=== PATIENT | female | born 1985 ===

== ENCOUNTER 2017-08-12 11:44 | Observation (INO) | payer MEDICARE, OTHER ==
[2017-08-12 11:44] VITALS: BMI 19.8
[2017-08-12] MEDS ORDERED: Albuterol-Ipratrop 3 mg / 0.5 (3 ml) UD INH STA ×3 (12:18→12:38)
[2017-08-12] MEDS ORDERED: Albuterol-Ipratrop 3 mg / 0.5 (3 ml) UD ONE (12:36)
[2017-08-12 12:43] LABS: BASO % 0.5 % (0.0-2.0); EOS # 0.2 K/uL (0.0-0.7); EOS % 4.9 % (0.0-4.0); HEMOGLOBIN 12.7 g/dL (12.0-16.0); LYMPH % 21.1 % (20.0-40.0); MEAN CELL VOLUME 84.2 fl (81.0-99.0); MEAN CORPUSCULAR HGB CONC 33.2 g/dL (33.0-37.0); MEAN PLATELET VOLUME 8.5 fl (7.2-11.7); MONO # 0.6 K/uL (0.0-0.8); MONO % 12.1 % (0.0-10.0); NEUT % 61.4 % (50.0-75.0); RBC 4.53 Mil/uL (3.80-5.20); RED CELL DISTRIBUTION WIDTH 13.8 % (11.5-14.5); WHITE BLOOD COUNT 4.9 K/uL (4.8-10.8)
--- NOTE | 2017-08-12 12:58 | ED PDOC ---
HPI: SOB/CHF/COPD Time Seen by Provider: 08/12/17 12:00 Chief Complaint (Nursing): Cough, Cold, Congestion Chief Complaint (Provider): shortness of breath History Per: Patient History/Exam Limitations: no limitations Onset/Duration Of Symptoms: Days (x1 week) Current Symptoms Are (Timing): Still Present Associated Symptoms: Fever, Productive Cough (clear sputum). denies: Chest Pain , Ankle/Leg Swelling Additional Complaint(s): Yoel Prado is a 32 year old female, with a past medical history of asthma as a child, who presents to the emergency department accompanied by spouse complaining of difficulty breathing associated with productive cough onset for x1 week. Patient reports a clear sputum and states she had a fever yesterday. Per spouse, patient had to wake up every 4 hrs to use the nebulizer but without relief. Patient had an appointment with PMD today who said her lungs sound tight and advised her to come to the ED. She denies similar symptoms in the past but reports having asthma as a child. She denies any chest pain, leg swelling or recent travel. No further medical complaints. PMD: Jesus Trejo Past Medical History Reviewed: Historical Data, Nursing Documentation, Vital Signs Vital Signs: Last Vital Signs Temp 98.0 F 08/12/17 11:53 Pulse 89 08/12/17 11:53 Resp 20 08/12/17 11:53 BP 107/67 08/12/17 11:53 Pulse Ox 98 08/12/17 14:30 - Medical History PMH: Anxiety, Asthma (uses inhaler), Depression Denies: Chronic Kidney Disease - Surgical History Surgical History: No Surg Hx - Family History Family History: States: No Known Family Hx - Social History Current smoker - smoking cessation education provided: Yes (light smoker <10 cigarettes daily) Alcohol: None Drugs: Denies - Immunization History Hx Tetanus Toxoid Vaccination: No Hx Influenza Vaccination: No Hx Pneumococcal Vaccination: No - Home Medications Home Medications: Ambulatory Orders Medication Instructions Recorded Albuterol Sulfate [Ventolin Hfa] 2 puff IH Q6 PRN 08/12/17 Buspirone HCl [Buspirone HCl] 15 mg PO Q8 08/12/17 Divalproex [Depakote DR] 500 mg PO HS 08/12/17 Paroxetine HCl [Paxil] 40 mg PO DAILY 08/12/17 QUEtiapine [SEROquel] 50 mg PO HS PRN 08/12/17 clonazePAM [Klonopin] 0.5 mg PO Q8 PRN 08/12/17 - Allergies Allergies/Adverse Reactions: Allergies Allergy/AdvReac Type Severity Reaction Status Date / Time Penicillins AdvReac DIARRHEA Verified 08/12/17 11:59 Wells Criteria for PE - Wells Criteria for Pulmonary Embolism Clinical Signs and Symptoms of DVT: No P.E is #1 Diagnosis, or Equally Likely: No Heart Rate >100: No Immobilization at least 3 days;Surgery previous 4 weeks: No Previous, objectively diagnosed PE or DVT: No Hemoptysis: No Malignancy w/treatment within 6 months, or palliative: No Total Score: 0 Review of Systems ROS Statement: Except As Marked, All Systems Reviewed And Found Negative Constitutional: Positive for: Fever Cardiovascular: Negative for: Chest Pain, Edema Respiratory: Positive for: Cough (productive), Shortness of Breath, Sputum ( clear ) Physical Exam - Reviewed Nursing Documentation Reviewed: Yes Vital Signs Reviewed: Yes - Physical Exam Appears: Positive for: Non-toxic Head Exam: Positive for: ATRAUMATIC, NORMOCEPHALIC Skin: Positive for: Normal Color, Warm, Dry Eye Exam: Positive for: Normal appearance ENT: Positive for: Normal ENT Inspection Neck: Positive for: Painless ROM Cardiovascular/Chest: Positive for: Regular Rate, Rhythm Respiratory: Positive for: Decreased Breath Sounds, Wheezing (b/l). Negative for: Respiratory Distress Gastrointestinal/Abdominal: Positive for: Normal Exam, Soft. Negative for: Tenderness Extremity: Positive for: Normal ROM (upper and lower extremities). Negative for : Deformity, Swelling Neurologic/Psych: Positive for: Alert, Oriented. Negative for: Motor/Sensory Deficits - Laboratory Results Result Diagrams: 08/12/17 12:30 08/12/17 12:30 - ECG O2 Sat by Pulse Oximetry: 98 (RA) Pulse Ox Interpretation: Normal Medical Decision Making Medical Decision Making: Initial Impression: shortness of breath, wheezing. Differential includes: asthma exacerbation due to smoking, acute bronchitis. r/o CHF, less likely ACS Initial Plan: --EKG --B-type natriuretic peptide --BMP --Troponin I --CBC w/ differential --Chest one view [RAD] --Duoneb 3 ml INH --SOLU-medrol 125 mg IVP --Peak flow pre/post Tx --Reevaluation - Wells score is 0. PERC negative 13:20 -On reassessment patient improved but still has symptoms, not completely resolved. Patient refuses xray she reports she had one 2 weeks ago and it was negative. 13:35 -Spoke with Dr. Trejo, discussed case and he will admit the patient for observation under his service for asthma exacerbation. Scribe Attestation: Documented by Dev Allen, acting as a scribe for Orlando Bettencourt MD Provider Scribe Attestation: All medical record entries made by the Scribe were at my direction and personally dictated by me. I have reviewed the chart and agree that the record accurately reflects my personal performance of the history, physical exam, medical decision making, and the department course for this patient. I have also personally directed, reviewed, and agree with the discharge instructions and disposition. Disposition - Clinical Impression Clinical Impression: Asthma exacerbation - Patient ED Disposition Is Patient to be Admitted: No Doctor Will See Patient In The: Office Counseled Patient/Family Regarding: Studies Performed, Diagnosis, Need For Followup - Disposition Disposition Time: 13:30 Condition: FAIR - Pt Status Changed To: Hospital Disposition Of: Observation - POA Present On Arrival: None PAUL Risk Score for UA/NSTEMI - PAUL Risk Score Age > 64: NO 3 or more CAD Risk Factors: NO Known CAD (Stenosis greater than 50%): NO Aspirin use in past 7 days: NO Severe Angina: NO EKG ST changes greater than 0.5mm: NO Positive Cardiac Marker: NO PAUL Score: 0 % risk at 14 days of: all cause mortality, new or recurrent [place], or severe recurrent ischemia requiring urgen revascularization: 5%
[2017-08-12 13:02] LABS: BLOOD UREA NITROGEN 7 mg/dl (7-17); CALCIUM 8.8 mg/dL (8.4-10.2); GFR AFRICAN-AMERICAN > 60; GFR NON-AFRICAN AMERICAN > 60
[2017-08-12 13:03] LABS: B-TYPE NATRIURETIC PEPTIDE 135 pg/ml (0-450)
[2017-08-12] MEDS ORDERED: Potassium Chloride 20 mEq ER Tab PO ONE ×4 (13:35→23:00)
[2017-08-12 14:29] LABS: SQUAMOUS EPITHIAL 1 /hpf (0-5); URINE BACTERIA RARE (<OCC); URINE BILIRUBIN NEGATIVE (NEGATIVE); URINE BLOOD NEGATIVE (NEGATIVE); URINE CLARITY SLIGHTY-CLOUDY (Clear); URINE COLOR YELLOW (YELLOW); URINE GLUCOSE (UA) NEG (Normal); URINE LEUKOCYTE ESTERASE NEG Leu/uL (Negative); URINE PROTEIN NEGATIVE (NEGATIVE); URINE UROBILINOGEN 0.2-1.0 mg/dL (0.2-1.0)
[2017-08-12] MEDS: Azithromycin 500 MG in Sodium Chloride 0.9% 250 ML IVPB SCH (16:45)
[2017-08-12] MEDS: Enoxaparin 40 mg Syringe SC SCH (16:47)
[2017-08-12] MEDS ORDERED: methylPREDNISolone 60 MG in Sodium Chloride 0.9% 50 ML IVPB SCH (17:00)
[2017-08-12] MEDS: Fluticasone-Salmeterol 250-50mcg Diskus IH SCH (21:46)
[2017-08-12] MEDS: Albuterol-Ipratrop 3 mg / 0.5 (3 ml) UD INH PRN (22:11)
[2017-08-13] MEDS: Albuterol-Ipratrop 3 mg / 0.5 (3 ml) UD INH PRN ×2 (05:39→08:57)
[2017-08-13 07:40] VITALS: RESP 18
[2017-08-13 08:00] LABS: BASO % 0.1 % (0.0-2.0); HEMOGLOBIN 12.7 g/dL (12.0-16.0); LYMPH # 0.3 K/uL (1.0-4.3); LYMPH % 5.9 % (20.0-40.0); MEAN CORPUSCULAR HEMOGLOBIN 28.5 pg (27.0-31.0); MEAN CORPUSCULAR HGB CONC 33.9 g/dL (33.0-37.0); MEAN PLATELET VOLUME 8.6 fl (7.2-11.7); MONO # 0.2 K/uL (0.0-0.8); MONO % 4.3 % (0.0-10.0); NEUT # 4.4 K/uL (1.8-7.0); NEUT % 89.7 % (50.0-75.0); PLATELET COUNT 192 K/uL (130-400); RBC 4.47 Mil/uL (3.80-5.20); WHITE BLOOD COUNT 4.9 K/uL (4.8-10.8)
[2017-08-13 08:25] LABS: BLOOD UREA NITROGEN 8 mg/dl (7-17); CALCIUM 8.7 mg/dL (8.4-10.2); GFR AFRICAN-AMERICAN > 60; GFR NON-AFRICAN AMERICAN > 60
[2017-08-13] MEDS: Enoxaparin 40 mg Syringe SC SCH (09:52)
[2017-08-13] MEDS: Fluticasone-Salmeterol 250-50mcg Diskus IH SCH (09:53)
[2017-08-13 10:45] LABS: BANDS 3 % (0-2); LYMPHOCYTE 5 % (20-50); MONOCYTE 3 % (0-10); NEUTROPHIL 89 % (42-75); PLATELET ESTIMATE NORMAL (NORMAL); TOTAL CELLS COUNTED 100
--- NOTE | 2017-08-13 10:48 | CARD ---
APPROVED REPORT EXAM: Two-dimensional and M-mode echocardiogram with Doppler and color Doppler. Other Information Quality : GoodRhythm : NSR INDICATION Dyspnea COPD 2D DIMENSIONS IVSd0.86 (0.7-1.1cm)LVDd4.27 (3.9-5.9cm) LVOT Diameter2.13 (1.8-2.4cm)PWd0.80 (0.7-1.1cm) IVSs1.04 (0.8-1.2cm)LVDs3.06 (2.5-4.0cm) FS (%) 28.4 %PWs0.81 (0.8-1.2cm) M-Mode DIMENSIONS Left Atrium (MM)2.78 (2.5-4.0cm)IVSd0.62 (0.7-1.1cm) Aortic Root2.91 (2.2-3.7cm)LVDd4.63 (4.0-5.6cm) Aortic Cusp Exc.1.85 (1.5-2.0cm)PWd0.88 (0.7-1.1cm) IVSs1.29 cmFS (%) 42 % LVDs2.70 (2.0-3.8cm)PWs1.36 cm Mitral Valve E/A ratio0.0 TDI E/Lateral E'0.0E/Medial E'0.0 Pulmonary Valve PV Peak Geojgexd00.5cm/s LEFT VENTRICLE The left ventricle is normal size. There is normal left ventricular wall thickness. The left ventricular function is normal. The left ventricular ejection fraction is 60% There is normal LV segmental wall motion. The left ventricular diastolic function is normal. No left ventricle thrombus noted on this study. There is no ventricular septal defect visualized. There is no left ventricular aneurysm. There is no mass noted in the left ventricle. RIGHT VENTRICLE The right ventricle is normal size. There is normal right ventricular wall thickness. The right ventricular systolic function is normal. ATRIA The left atrium size is normal. The right atrium size is normal. The interatrial septum is intact with no evidence for an atrial septal defect. AORTIC VALVE The aortic valve is normal in structure. No aortic regurgitation is present. There is no aortic valvular stenosis. There is no aortic valvular vegetation. MITRAL VALVE The mitral valve is normal in structure. There is no evidence of mitral valve prolapse. There is no mitral valve stenosis. There is no mitral valve regurgitation noted. TRICUSPID VALVE The tricuspid valve is normal in structure. There is no tricuspid valve regurgitation noted. There is no tricuspid valve prolapse or vegetation. There is no tricuspid valve stenosis. PULMONIC VALVE The pulmonary valve is normal in structure. There is no pulmonic valvular regurgitation. There is no pulmonic valvular stenosis. GREAT VESSELS The aortic root is normal in size. The ascending aorta is normal in size. The IVC is normal in size and collapses >50% with inspiration. PERICARDIAL EFFUSION The pericardium appears normal. There is no pleural effusion. <Conclusion> Normal Echocardiogram
[2017-08-13] MEDS: Azithromycin 500 MG in Sodium Chloride 0.9% 250 ML IVPB SCH (11:00)
--- NOTE | 2017-08-13 11:15 | RAD ---
HISTORY: Shortness of breath. COMPARISON: 09/02/2013 TECHNIQUE: Chest PA and lateral FINDINGS: LUNGS: No active pulmonary disease. PLEURA: No significant pleural effusion identified. No pneumothorax apparent. CARDIOVASCULAR: Normal. OSSEOUS STRUCTURES: No significant abnormalities. VISUALIZED UPPER ABDOMEN: Normal. OTHER FINDINGS: None. IMPRESSION: No active disease. No significant interval change compared to the prior examination(s).
[2017-08-13] MEDS ORDERED: MethylPREDNISolone 40 mg Vial IVP ONE (12:45)
[2017-08-13 16:00] VITALS: BP 99/59; PULSE 117; TEMP 98.7; O2SAT 95
--- NOTE | 2017-08-13 18:43 | CP.PCM.HP ---
History of Present Illness - History of Present Illness History of Present Illness: Patient presented in ER with SOB. Patient was not responding to medication as OP . She was started on iv steroid and now improved well At present no SOB no wheezing. Present on Admission - Present on Admission Any Indicators Present on Admission: No Review of Systems - Constitutional Constitutional: As Per HPI - EENT Eyes: As Per HPI - Cardiovascular Cardiovascular: As Per HPI - Respiratory Respiratory: Dyspnea, Wheezing - Gastrointestinal Gastrointestinal: As Per HPI - Genitourinary Genitourinary: As Per HPI - Musculoskeletal Musculoskeletal: As Per HPI - Neurological Neurological: As Per HPI Past Patient History - Infectious Disease Hx of Infectious Diseases: None - Tetanus Immunizations Tetanus Immunization: Unknown - Past Medical History & Family History Past Medical History?: Yes - Past Social History Smoking Status: Light Smoker < 10 Cigarettes Daily - CARDIAC Hx Cardiac Disorders: No - PULMONARY Hx Respiratory Disorders: Yes (ASTHMA) - NEUROLOGICAL Hx Neurological Disorder: No - HEENT Hx HEENT Problems: No - RENAL Hx Chronic Kidney Disease: No - ENDOCRINE/METABOLIC Hx Endocrine Disorders: No - HEMATOLOGICAL/ONCOLOGICAL Hx Blood Disorders: No - INTEGUMENTARY Hx Dermatological Problems: No - MUSCULOSKELETAL/RHEUMATOLOGICAL Hx Musculoskeletal Disorders: No Hx Falls: No - GASTROINTESTINAL Hx Gastrointestinal Disorders: Yes (gastritis) - GENITOURINARY/GYNECOLOGICAL Hx Genitourinary Disorders: No - PSYCHIATRIC Hx Psychophysiologic Disorder: Yes (ANXIETY/DEPRESSION) Hx Substance Use: No - SURGICAL HISTORY Hx Surgeries: No - ANESTHESIA Hx Anesthesia: No Meds Home Medications: Home Medication List Medication Instructions Recorded Confirmed Type Albuterol 0.5% [Albuterol 0.5% 0.25 ml IH Q6 30 Days #60 neb 08/13/17 Rx Inhal Pebbles (2.5 mg/0.5 ml) UD] Azithromycin [Zithromax Tri-Andi] 500 mg PO DAILY 3 Days #3 tablet 08/13/17 Rx Fluticasone/Salmeterol [Advair 1 each IH BID 30 Days #1 blst.w.dev 08/13/17 Rx 250-50 Diskus] Methylprednisolone [Medrol Dose 4 mg PO DAILY #21 mg 08/13/17 Rx Pack (21 tabs)] Montelukast [Singulair] 10 mg PO DAILY 30 Days #30 tab 08/13/17 Rx Allergies/Adverse Reactions: Allergies Allergy/AdvReac Type Severity Reaction Status Date / Time Penicillins AdvReac DIARRHEA Verified 08/12/17 11:59 Physical Exam - Constitutional Appears: Non-toxic - Head Exam Head Exam: ATRAUMATIC, NORMAL INSPECTION, NORMOCEPHALIC - Eye Exam Eye Exam: EOMI, Normal appearance, PERRL - ENT Exam ENT Exam: Mucous Membranes Moist - Neck Exam Neck exam: Positive for: Normal Inspection - Respiratory Exam Respiratory Exam: NORMAL BREATHING PATTERN Additional comments: No wheezing at presence time - Cardiovascular Exam Cardiovascular Exam: REGULAR RHYTHM, +S1, +S2 - GI/Abdominal Exam GI & Abdominal Exam: Normal Bowel Sounds - Extremities Exam Extremities exam: Positive for: normal inspection - Neurological Exam Neurological exam: Alert, CN II-XII Intact, Normal Gait, Oriented x3, Reflexes Normal - Psychiatric Exam Psychiatric exam: Normal Affect - Skin Skin Exam: Normal Color Results - Vital Signs Recent Vital Signs: Last Vital Signs Temp 98.7 F 08/13/17 15:59 Pulse 117 H 08/13/17 15:59 Resp 18 08/13/17 15:59 BP 99/59 L 08/13/17 15:59 Pulse Ox 95 08/13/17 15:59 - Labs Result Diagrams: 08/13/17 07:45 08/13/17 07:45 Labs: Laboratory Results - last 24 hr 08/13/17 08/13/17 07:45 07:45 WBC 4.9 RBC 4.47 Hgb 12.7 Hct 37.6 MCV 84.0 MCH 28.5 MCHC 33.9 RDW 14.0 Plt Count 192 MPV 8.6 Neut % (Auto) 89.7 H Lymph % (Auto) 5.9 L [place] % (Auto) 4.3 Eos % (Auto) 0.0 Baso % (Auto) 0.1 Neut # (Auto) 4.4 Lymph # (Auto) 0.3 L [place] # (Auto) 0.2 Eos # (Auto) 0.0 Baso # (Auto) 0.0 Neutrophils % (Manual) 89 H Band Neutrophils % 3 H Lymphocytes % (Manual) 5 L Monocytes % (Manual) 3 Platelet Estimate Normal RBC Morphology Normal Sodium 139 Potassium 4.0 Chloride 106 Carbon Dioxide 21 L Anion Gap 16 BUN 8 Creatinine 0.5 L Est GFR ( Amer) > 60 Est GFR (Non-Af Amer) > 60 Random Glucose 130 H Calcium 8.7 Assessment & Plan (1) Dyspnea Status: Acute (2) Bronchitis Status: Acute (3) Asthma exacerbation Status: Acute - Assessment and Plan (Free Text) Plan: Patient stable will DC home and follow as OP.
== END 2017-08-13 18:45 | disposition home or self-care (01) ==
LOC: H.ER 11:44 → H.ERHOLD 13:38 → H.MEDSURG1 14:49
PROVIDERS: ADMIT Internal Medicine; ATTEND Internal Medicine
DX: J45.901 Unspecified asthma with (acute) exacerbation (principal); F17.210 Nicotine dependence, cigarettes, uncomplicated; K29.70 Gastritis, unspecified, without bleeding; J40 Bronchitis, not specified as acute or chronic; Z88.0 Allergy status to penicillin; F32.9 Major depressive disorder, single episode, unspecified; F41.9 Anxiety disorder, unspecified
CPT/HCPCS: 36415; 71046; 80048; 81003; 81025; 83880; 84484; 85025; 85378; 93306; 94150; 94640; 96374; 99285; G0378; J0456; J1650; J2060; J2920; J2930